=== PATIENT | female | born 1955 ===

== ENCOUNTER → 2017-10-22 | Outpatient (CLI) | payer OTHER | END | disposition home or self-care (01) | LOC: NUTRICION 09:31 → PPHC 10:00 | DX: E11.9 Type 2 diabetes mellitus without complications (principal) ==

== ENCOUNTER 2018-01-21 09:39 | Outpatient (CLI) | payer OTHER ==
[~2018-01-21] VITALS: Ht 165.1 cm; Wt 63.5 kg
[2018-01-21] MEDS ORDERED: AMOXICILLIN500 M1 PO (11:05)
[2018-01-21] MEDS ORDERED: FLONASE16 GM NASAL (11:05)
== END 2018-01-21 10:00 | disposition home or self-care (01) ==
LOC: OFIC 805 09:39
DX: J31.0 Chronic rhinitis (principal); H69.83 Other specified disorders of Eustachian tube, bilateral; J06.9 Acute upper respiratory infection, unspecified